=== PATIENT | male | born 1980 | race Caucasian/White ===

== ENCOUNTER 2025-03-11 20:06 | Emergency (ER) | payer SELFPAY ==
[2025-03-11] MEDS: Diphtheria,Pertussis(Acell),Tetanus Vaccine 0.5 ML Syringe IM ONE (20:44)
[2025-03-11] MEDS: Bacitracin Oint 1 GM U/D Packet TOP ONE (20:47)
== END 2025-03-11 20:56 | disposition home or self-care (01) ==
LOC: JP.ED 20:06
DX: S60.552A Superficial foreign body of left hand, initial encounter (principal); Z23 Encounter for immunization; W45.8XXA Other foreign body or object entering through skin, initial encounter
CPT/HCPCS: 90471; 90715; 99283; J2003